=== PATIENT | male | born 1945 | race Caucasian/White ===

== ENCOUNTER → 2020-08-10 | Outpatient (CLI) | payer SELFPAY | LOC: M LABCAHC 15:50 | PROVIDERS: ATTEND Pediatrics | DX: Z11.59 Encounter for screening for other viral diseases (principal) ==

== ENCOUNTER → 2021-04-13 | Outpatient (CLI) | payer MEDICARE, OTHER ==
[~2021-04-13] MED LIST: PROHANCE 279.3MG/ML 15ML VIAL As Ordered ONE; PROHANCE 279.3MG/ML 5ML VIAL As Ordered ONE
--- NOTE | 2021-04-13 16:05 | REP ---
INDICATION: ELEVATED PSA. COMPARISON: No comparison prostate imaging. TECHNIQUE: Using a phased array surface coil, small cgwek-rk-[id number] imaging was acquired using T2 weighted scans in the axial, coronal, and sagittal imaging planes. Small xbkob-qk-qych diffusion-weighted sequences are acquired. Small gnjwn-fr-arya axial T1 weighted scans are acquired dynamically before and after the intravenous administration of 18 mL of ProHance. Imaging is reviewed using the [employer] computer-aided detection system. FINDINGS: There is no evidence of skeletal metastatic disease in the visualized bony skeleton. No intrapelvic or extra pelvic mass or adenopathy is observed. Prostate gland is enlarged with overall dimensions of 4.9 x 3.9 x 3.7 cm. Calculated volume 37.7 mL. Seminal vesicles show no abnormality. There is a low T2 signal intensity hypervascular nodule displaying slightly decreased ADC and increased diffusion weighted signal in the left base transition zone and left mid transition zone. This measures 1.5 x 1.0 x 1.4 cm in dimension with a calculated volume of 1.19 mL. PI-RADS category 3. This is localized with a traced region of interest and submitted for consideration of ultrasound/MR guided fusion directed biopsy. No other suspicious lesion is identified within the prostate. IMPRESSION: Multiparametric prostate sonography findings as above. <Electronically signed by Toro Seaman > 04/13/21 1082
== END ==
LOC: M RAD 12:58
PROVIDERS: ATTEND Specialist
DX: R97.20 Elevated prostate specific antigen [PSA] (principal)
CPT/HCPCS: 72197; A9576

== ENCOUNTER → 2025-04-09 | Outpatient (CLI) | payer MEDICARE, OTHER ==
[~2025-04-09] MED LIST changes: +BYST1TAB3 PO; +CIPR-249 PO; +COLA100C5 PO; +ESOM40CA35 PO; +NORV5TAB PO; +OMEP40CA5 PO; +PERCOCET PO; -PROHANCE 279.3MG/ML 15ML VIAL As Ordered ONE; -PROHANCE 279.3MG/ML 5ML VIAL As Ordered ONE
== END ==
LOC: M ONCR 13:45
PROVIDERS: ATTEND General Practice
DX: C61 Malignant neoplasm of prostate (principal); Z90.79 Acquired absence of other genital organ(s); Z80.6 Family history of leukemia; Z87.891 Personal history of nicotine dependence; Z79.899 Other long term (current) drug therapy

== ENCOUNTER → 2025-04-30 | Outpatient (CLI) | payer MEDICARE, OTHER ==
[2025-04-30] MEDS: LEUPROLIDE 45 MG SYRINGE KIT IM SCH (11:27)
== END ==
LOC: M ONCR 10:55
PROVIDERS: ATTEND General Practice
DX: C61 Malignant neoplasm of prostate (principal)
CPT/HCPCS: 96402; J9217

== ENCOUNTER 2025-05-01 10:56 | Outpatient (RCR) | payer MEDICARE, OTHER | END 2025-05-03 | LOC: M ONCR 10:56 | PROVIDERS: ATTEND General Practice | DX: Z51.0 Encounter for antineoplastic radiation therapy (principal); C61 Malignant neoplasm of prostate ==

== ENCOUNTER → 2025-06-02 | Outpatient (RCR) | payer MEDICARE, OTHER ==
[~2025-06-02] MED LIST changes: +OXYB-54 PO
== END ==
LOC: M ONCR 05-05 11:01
PROVIDERS: ATTEND General Practice
DX: Z51.0 Encounter for antineoplastic radiation therapy (principal); C61 Malignant neoplasm of prostate

== ENCOUNTER 2025-06-24 10:48 | Outpatient (RCR) | payer MEDICARE, OTHER | END 2025-07-03 | LOC: M ONCR 10:48 | PROVIDERS: ATTEND General Practice | DX: Z51.0 Encounter for antineoplastic radiation therapy (principal); C61 Malignant neoplasm of prostate ==